=== PATIENT | male | born 1960 | race Caucasian/White ===

== ENCOUNTER 2025-11-03 13:48 | Outpatient (AMB) | payer OTHER, SELFPAY ==
[2025-11-03 13:58] VITALS: BMI 26.1
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
--- OUTSIDE RECORDS SUMMARY | 2025-11-03 18:03 | XMS_ITS | Data Portability ---
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 He was successfully resuscitated and returned to for ongoing care. Subsequently, his Klonopin and oxycodone were tapered and d/c'd. He did not appear to be in pain off oxycodone and he did not appear anxious except on occasion. Other meds were added for pain and anxiety management with moderate effect. He has requested discharge home today. After discussion with PT/OT, it was determined that he would be appropriate for discharge to the next level of care, which would involve in-home PT/OT. Home Health Certification: Dx as above; Seen this am by [facility]-registered Erma Padilla PA-C NPI# [id number]; Last MD visit 09/19/21; [facility] for medication management and reconciliation and teaching; PT: home exercise program for gait training and increasing muscle strength and needs home environment assessment to determine need for assistive devices; OT for increased independence with ADLs; Home-bound due to needs assistance to navigate uneven sidewalks and curbs due to altered gait with fracture boot. Consultants Involved: ortho Tests/Labs Needing to be Ordered or Followed by PCP: per PCP discretion Services Ordered at Discharge: referred to [facility] Diet: regular texture, thin liquids; allergic to fish Activity: WBAT RLE with fracture boot ERMA PADILLA PA-C [address] [place] [address], [address], [place], [address], [facility] [place] Owned it 11/01/2021 12:22:54
--- OUTSIDE RECORDS SUMMARY | 2025-11-03 18:03 | XMS_ITS | Patient Health Record ---
Author Organization [facility] Address [address] [place] [address] Care Team Providers Care Naval Engineer Name Role Phone Shahnaz - DO NOT USE, [facility] Provider Unavailable Teodoro Dutton Unavailable [phone] NO, PCP Unavailable [phone] Reason For Referral No Information Plan Of Treatment No Information Insurance Providers Payer Name Payer Address Payer Phone Subscriber Number Group Number Insured Name Patient Relationship to Insured Coverage Start Date Coverage End Date [place] Medicaid Standard [address] [place] [address] [phone] [id number] Husam Pedroza Self - patient is the insured
--- OUTSIDE RECORDS SUMMARY | 2025-11-03 18:03 | XMS_ITS | Clinical Summary ---
Author Organization [facility] Address [address] [place] [address] Care Team Providers Care Mutual Fund Analyst Name Role Phone Unavailable Primary Care Provider Unavailabl e Social History Tobacco Use Types Packs/Day Years Used Date Smoking Tobacco: Never Assessed Sex and Gender Information Value Date Recorded Sex Assigned at Not on file Legal Sex Male 3:00 AM EST Gender Identity Not on file Sexual Orientation Not on file Plan of Treatment Health Maintenance Due Date Last Done Comments Pneumococcal Vaccine: 50+ Ye ars (1 of 1 - PCV) 2011 Zoster Vaccines (1 of 2) 2011 Depression Screening 11/17/2024 COVID-19 Vaccine (2 - 2024-2 6 season) 2025 05/14/2021 Influenza Vaccine (#1) 2025 DTaP,Tdap,and Td Vaccines (2 - Td or Tdap) 08/07/2033 08/07/2023 RSV Immunization Adult Patie nts (1 - 1-dose 75+ series) 2036 Colorectal Cancer Screening: FIT-DNA (Cologuard) Discontinued 08/04/2023 HIB Vaccines Aged Out No longer eligi ble based on patient's age to complete this topic HPV Vaccines Aged Out No longer eligi ble based on patient's age to complete this topic Hepatitis A Vaccines Aged Out No long er eligible based on patient's age to complete this topic Hepatitis B Vaccines Aged Out No long er eligible based on patient's age to complete this topic IPV Vaccines Aged Out No longer eligi ble based on patient's age to complete this topic MMR Vaccines Aged Out No longer eligi ble based on patient's age to complete this topic Meningococcal ACWY Vaccine Aged Out N o longer eligible based on patient's age to complete this topic Meningococcal B Vaccine Aged Out No l onger eligible based on patient's age to complete this topic RSV Immunization Patients Un sam 20 months Aged Out No longer eligible b ased on patient's age to complete this topic Varicella Vaccines Aged Out No longer eligible based on patient's age to complete this topic
== END 2025-11-03 14:37 | disposition home or self-care (01) ==
LOC: HO.HPHYS 13:48
PROVIDERS: PCP Physician Assistant; Visit Provider Physical Medicine & Rehabilitation
DX: M54.16 Radiculopathy, lumbar region (principal); M51.26 Other intervertebral disc displacement, lumbar region; M48.061 Spinal stenosis, lumbar region without neurogenic claudication
CPT/HCPCS: 99214; G2211

== ENCOUNTER → 2025-11-03 13:48 | Outpatient (BNVA) | payer OTHER, SELFPAY | PROVIDERS: PCP Physician Assistant; Visit Provider Physical Medicine & Rehabilitation | DX: M48.061 Spinal stenosis, lumbar region without neurogenic claudication (principal); M51.16 Intervertebral disc disorders with radiculopathy, lumbar region | CPT/HCPCS: 99212 ==